=== PATIENT | female | born 1985 | race African-American/Black ===

== ENCOUNTER 2019-03-31 20:46 | Emergency (ER) | payer OTHER ==
[~2019-03-31] VITALS: Ht 170.2 cm; Wt 86.2 kg
[~2019-03-31 20:46] MED LIST: AMOXICILLIN 50500 M1 PO; CIPROFLOXACIN500 M3 PO; FLAGYL500 MG PO; FLEXERIL PO; KEFLEX500 MG PO; NOHOMEMEDICATIONS; NORCO 5-325 TA1 EACH PO; VENTOLIN17 GM
[2019-03-31] MEDS ORDERED: MOBIC15 MG PO (23:20)
[2019-03-31] MEDS ORDERED: ROBAXIN 750 MG750 MG PO (23:20)
[2019-03-31 23:43] VITALS: BP 144/95
== END 2019-03-31 23:44 | disposition home or self-care (01) ==
LOC: ER 20:46
DX: S13.4XXA Sprain of ligaments of cervical spine, initial encounter (principal); R51 Headache; J45.909 Unspecified asthma, uncomplicated; F10.10 Alcohol abuse, uncomplicated; Z79.899 Other long term (current) drug therapy; V43.52XA Car driver injured in collision with other type car in traffic accident, initial encounter; Y93.89 Activity, other specified; Y92.89 Other specified places as the place of occurrence of the external cause; Y99.8 Other external cause status